=== PATIENT | male | born 1950 | race Caucasian/White ===

== ENCOUNTER 2022-10-05 09:12 | Outpatient (CLI) | payer MEDICARE, BC | END 2022-10-05 09:13 | disposition home or self-care (01) | LOC: TBSIIMAG 09:12 | PROVIDERS: ATTEND Specialist | DX: M51.17 Intervertebral disc disorders with radiculopathy, lumbosacral region (principal); M51.36 Other intervertebral disc degeneration, lumbar region | CPT/HCPCS: 72148 ==

== ENCOUNTER 2024-09-25 14:30 | Outpatient (CLI) | payer MEDICARE, BC | END 2024-09-25 14:31 | disposition home or self-care (01) | LOC: BICMAMMO 14:30 | PROVIDERS: ATTEND Internal Medicine Rheumatology | DX: M81.0 Age-related osteoporosis without current pathological fracture (principal); M25.50 Pain in unspecified joint; M54.6 Pain in thoracic spine; M47.814 Spondylosis without myelopathy or radiculopathy, thoracic region; M85.851 Other specified disorders of bone density and structure, right thigh; M85.852 Other specified disorders of bone density and structure, left thigh | CPT/HCPCS: 72072; 77080 ==